=== PATIENT | male | born 1945 ===

== ENCOUNTER 2023-01-30 15:29 | Inpatient (IN) | payer MEDICARE ==
[2023-01-30] MEDS ORDERED: dilTIAZem 25 MG/5 ML VIAL ONE (15:59)
[2023-01-30 16:15] LABS: #Eosinphils 0.1 thou/uL (0.0-0.7); #Monocytes 1.1 thou/uL (0.11-0.59); #Neutrophils 7.2 thou/uL (1.40-6.50); %Basophils 0.4 % (0.0-1.0); %Lymphocytes 18.3 % (21.0-51.0); %Monocytes 10.1 % (0.0-10.0); %Neutrophils 69.8 % (42.0-75.0); Hematocrit 46.2 % (42.0-52.0); Hemoglobin 15.7 g/dL (14.0-18.0); Mean Platelet Volume 9.3 fL (7.4-10.4); Platelet Count 244 10x3/uL (130-400); RBC Distribution Width 13.6 % (11.5-14.5); Red Blood Cell (RBC) Count 4.62 mill/uL (4.70-6.10); White Blood Cell (WBC) Count 10.4 10x3/uL (4.8-10.8)
[2023-01-30 16:28] LABS: INR-International Normal Ratio 1.1; PTT 29.9 sec (22.9-36.1); Prothrombin Time 14.7 sec (12.0-14.7)
[2023-01-30 16:37] LABS: ALT (SGPT) 30 U/L (8-55); AST (SGOT) 49 U/L (5-34); Albumin 4.2 g/dL (3.4-4.8); Alkaline Phosphatase 64 U/L (40-110); Anion Gap 18 mmol/L (10-20); BUN (Urea Nitrogen) 18 mg/dL (8.4-25.7); Bilirubin, Total 1.5 mg/dL (0.2-1.2); Calc. Creatinine Clearance 0 mL/min (70-130); Calcium 10.3 mg/dL (7.8-10.44); Carbon Dioxide 19 mmol/L (23-31); Chloride 102 mmol/L (98-107); Estimated GFR 62; Glucose 147 mg/dL (83-110); Potassium 4.3 mmol/L (3.5-5.1); Protein, Total 8.2 g/dL (5.8-8.1); Sodium 135 mmol/L (136-145)
[2023-01-30] MEDS ORDERED: Aspirin Chewable 81 MG TAB ONE (16:39)
[2023-01-30] MEDS ORDERED: dilTIAZem 125 MG/25 ML SDV ONE (16:39)
[2023-01-30 16:42] LABS: Troponin I 0.129 ng/mL (< 0.028)
[2023-01-30] MEDS ORDERED: Senokot S 8.6-50 MG TAB PO PRN (17:19)
[2023-01-30] MEDS ORDERED: Acetaminophen 325 MG TAB PO PRN (17:19)
[2023-01-30] MEDS ORDERED: Ondansetron PF 4 MG/2 ML Vial IVP PRN (17:19)
[2023-01-30] MEDS ORDERED: Acetaminophen 650 MG Suppository PR PRN (17:19)
[2023-01-30] MEDS ORDERED: Loperamide HCl 2 MG CAP PO PRN (17:19)
[2023-01-30] MEDS ORDERED: Bisacodyl 5 MG TAB PO PRN (17:19)
[2023-01-30] MEDS ORDERED: dilTIAZem CD 120 MG CAP PO SCH (18:30)
[2023-01-30 22:38] VITALS: BMI 30.2
[2023-01-30] MEDS: Famotidine/PF 20 mg/2ml Vial SLOW IVP SCH (23:03)
[2023-01-30] MEDS: Atorvastatin Calcium 40 MG TAB PO SCH (23:03)
[2023-01-30] MEDS: Nicotine 14 MG PATCH TD SCH (23:03)
[2023-01-31 04:52] LABS: #Eosinphils 0.2 thou/uL (0.0-0.7); #Monocytes 1.1 thou/uL (0.11-0.59); #Neutrophils 7.2 thou/uL (1.40-6.50); %Basophils 0.4 % (0.0-1.0); %Eosinophils 1.8 % (0.0-10.0); %Lymphocytes 17.9 % (21.0-51.0); %Monocytes 10.8 % (0.0-10.0); %Neutrophils 68.8 % (42.0-75.0); Hemoglobin 14.4 g/dL (14.0-18.0); Mean Corpuscular HGB CONC 34.3 g/dL (32.0-36.0); Mean Corpuscular Hemoglobin 33.9 pg (27.0-31.0); Mean Corpuscular Volume 98.8 fl (78.0-98.0); Mean Platelet Volume 9.5 fL (7.4-10.4); Platelet Count 228 10x3/uL (130-400); RBC Distribution Width 13.3 % (11.5-14.5); Red Blood Cell (RBC) Count 4.25 mill/uL (4.70-6.10); White Blood Cell (WBC) Count 10.5 10x3/uL (4.8-10.8)
[2023-01-31 05:04] LABS: Hemoglobin A1c 7.3 % (4.0-6.0)
[2023-01-31 05:18] LABS: Anion Gap 17 mmol/L (10-20); BUN (Urea Nitrogen) 16 mg/dL (8.4-25.7); Calc. Creatinine Clearance 78 mL/min (70-130); Calcium 9.6 mg/dL (7.8-10.44); Carbon Dioxide 18 mmol/L (23-31); Cardiac Risk 5.3 (Less than 4.5); Chloride 104 mmol/L (98-107); Cholesterol 169 mg/dl (< 200 Desired); Estimated GFR 74; Glucose 132 mg/dL (83-110); HDL Cholesterol 32 mg/dL (>60 Neg Risk); LDL Cholesterol, Calculated 123 mg/dL; Potassium 3.8 mmol/L (3.5-5.1); Sodium 135 mmol/L (136-145); Triglycerides 68 mg/dL (Less than 150)
[2023-01-31] MEDS: Aspirin 81 mg Enteric Coated Tablet PO SCH (08:32)
[2023-01-31] MEDS: dilTIAZem CD 120 MG CAP PO SCH (08:32)
[2023-01-31] MEDS: Famotidine/PF 20 mg/2ml Vial SLOW IVP SCH ×2 (08:32→20:02)
[2023-01-31] MEDS: Nicotine 14 MG PATCH TD SCH (16:47)
[2023-01-31] MEDS: Atorvastatin Calcium 40 MG TAB PO SCH (20:02)
[2023-02-01] MEDS: dilTIAZem CD 120 MG CAP PO SCH (08:46)
[2023-02-01] MEDS: Aspirin 81 mg Enteric Coated Tablet PO SCH (08:46)
[2023-02-01] MEDS: Famotidine/PF 20 mg/2ml Vial SLOW IVP SCH ×2 (08:47→20:05)
[2023-02-01] MEDS: Nicotine 14 MG PATCH TD SCH (18:50)
[2023-02-01] MEDS: Sodium Chloride 0.9% 1,000 ML IV SCH (18:51)
[2023-02-01] MEDS: Atorvastatin Calcium 40 MG TAB PO SCH (20:05)
[2023-02-02 05:51] LABS: Anion Gap 16 mmol/L (10-20); BUN (Urea Nitrogen) 12 mg/dL (8.4-25.7); Calc. Creatinine Clearance 85 mL/min (70-130); Calcium 9.2 mg/dL (7.8-10.44); Carbon Dioxide 19 mmol/L (23-31); Chloride 103 mmol/L (98-107); Estimated GFR 83; Glucose 93 mg/dL (83-110); Potassium 3.5 mmol/L (3.5-5.1); Sodium 134 mmol/L (136-145)
[2023-02-02] MEDS: Sodium Chloride 0.9% 1,000 ML IV SCH ×2 (08:38→20:23)
[2023-02-02] MEDS: Aspirin 81 mg Enteric Coated Tablet PO SCH (08:39)
[2023-02-02] MEDS: Famotidine/PF 20 mg/2ml Vial SLOW IVP SCH ×2 (08:40→20:15)
[2023-02-02] MEDS: dilTIAZem CD 120 MG CAP PO SCH (08:40)
[2023-02-02] MEDS: Nicotine 14 MG PATCH TD SCH (16:33)
[2023-02-02 19:47] VITALS: BP 166/87; TEMP 98.1
[2023-02-02] MEDS: Atorvastatin Calcium 40 MG TAB PO SCH (20:15)
== END 2023-02-02 21:29 | DRG 64 ==
LOC: ERS 15:29 → 2SE 17:26
PROVIDERS: ADMIT Family Medicine; ATTEND Internal Medicine
DX: I63.89 Other cerebral infarction (principal); G93.6 Cerebral edema; I48.92 Unspecified atrial flutter; R47.01 Aphasia; F17.210 Nicotine dependence, cigarettes, uncomplicated; Z90.89 Acquired absence of other organs; R47.81 Slurred speech; I48.91 Unspecified atrial fibrillation; R03.0 Elevated blood-pressure reading, without diagnosis of hypertension
CPT/HCPCS: 36415; 36416; 70450; 70551; 71045; 80048; 80053; 80061; 83036; 84484; 85025; 85610; 85730; 93005; 93306; 93880; 96365; 96366; 96376; 97139; J1650; J7050; S0028